=== PATIENT | female | born 1985 | race Caucasian/White ===

== ENCOUNTER → 2016-12-22 | Outpatient (CLI) | payer OTHER ==
[2016-12-22 16:55] VITALS: BP 133/84
== END ==
LOC: MHUC 16:13
PROVIDERS: ATTEND Physician Assistant
DX: J01.00 Acute maxillary sinusitis, unspecified (principal)
CPT/HCPCS: 99213

== ENCOUNTER → 2017-03-30 | Outpatient (CLI) | payer OTHER ==
[~2017-03-30] MED LIST: AZIT250T81 PO; PRED20TA PO
--- NOTE | 2017-03-30 12:08 | Diagnostic Imaging Report ---
PROCEDURE: US Gallbladder. TECHNIQUE: Multiple real-time grayscale images were obtained over the right upper quadrant in various projections. INDICATION: Intermittent diarrhea, epigastric pain radiating. FINDINGS: The liver appears nonfocal. Its echotexture pattern is not convincingly pathologic. No solid or cystic hepatic mass. No bile duct dilatation. A mobile calculus within the gallbladder measures 3-4 mm. The gallbladder is nondilated and showing no wall thickening or pericholecystic fluid. There is no intra or extrahepatic bile duct dilatation. The unobstructed right kidney measures 10.4 cm and is normal. IMPRESSION: There is mild cholelithiasis without biliary dilatation or evidence of acute cholecystitis. Dictated by: Dictated on workstation # [id number]
== END ==
LOC: RAD 08:57
PROVIDERS: ATTEND Family Medicine
DX: R10.13 Epigastric pain (principal)
CPT/HCPCS: 76705